=== PATIENT | male | born 1940 | race Caucasian/White ===

== ENCOUNTER → 2018-08-07 09:04 | Outpatient (CLI) | payer OTHER, MEDICARE, SELFPAY ==
--- NOTE | 2018-08-10 15:56 | PM.PFT.1 ---
Pulmonary Function Test Referral & Results Date Patient Seen: 08/07/18 Requesting provider: Cathie Lyman Indication: Cough Results: The spirometry demonstrates an FVC of 3.40 L which is 89% of predicted. The FEV1 was measured at 2.76 L which is 100% of predicted. The FEV1/FVC ratio was 81 which is 112% of predicted. Following the administration of bronchodilator there was a 34% improvement in FEF 25-75%. Lung volumes show an SVC of 3.78 L which is 90% of predicted. The diffusing capacity was measured at 17.58 which is 59% of predicted. No hemoglobin value was provided, so no correction for potential anemia could be made, if appropriate. The maximum voluntary ventilation was normal Interpretation: This study demonstrates probably normal spirometry although there was a very minimal improvement in small airway flow based on a 34% improvement in the FEF 25-75%, after bronchodilator There is a moderate reduction in diffusing capacity suggesting element of disease at the capillary alveolar level Clinical correlation suggested
== END ==
PROVIDERS: Visit Provider Physician Assistant Medical
DX: J40 Bronchitis, not specified as acute or chronic (principal); R05 Cough
CPT/HCPCS: 87070; 87102; 87116; 87205; 89220; 94010; 94060; 94726; 94729

== ENCOUNTER → 2018-08-07 15:13 | Outpatient (REF) | payer MEDICARE, OTHER, SELFPAY | LOC: LAB 15:13 | PROVIDERS: Visit Provider Physician Assistant Medical | DX: J40 Bronchitis, not specified as acute or chronic (principal); R05 Cough | CPT/HCPCS: 87070; 87102; 87116; 87205 ==

== ENCOUNTER → 2018-09-13 09:42 | Outpatient (CLI) | payer OTHER, MEDICARE, SELFPAY ==
--- NOTE | 2018-09-13 | DI.RAD.S_ITS ---
PROCEDURE: XR CHEST 2V INDICATIONS: BRONCHITIS TECHNIQUE: 2 views of the chest were acquired. COMPARISON: None. FINDINGS: Surgical changes and devices: Sternotomy wires, probable prior CABG. Right shoulder arthroplasty.. Lungs and pleura: No pleural effusions or pneumothorax. Lungs are clear. Mediastinum: Mediastinal contours are normal. Heart size is normal. Bones and chest wall: No suspicious bony abnormalities. Soft tissues appear unremarkable. IMPRESSION: Reduced inspiratory volume, no sign of pneumonia. Prior CABG. Dictated by: Kenny Anderson M.D. on 09/13/2018 at 10:29 Approved by: Kenny Anderson M.D. on 09/13/2018 at 10:30
--- NOTE | 2018-09-13 | DI.RAD.S_ITS ---
PROCEDURE: XR LUMBAR SPINE 2-3V INDICATIONS: BACK PAIN TECHNIQUE: 3 views of the lumbar spine were acquired. COMPARISON: None. FINDINGS: Bones: 5 [id number] vertebrae are present. There is mild levoscoliosis involving the thoracolumbar junction centered at L1 level. Minimal retrolisthesis of L1 on L2 and L2 on L3 is seen. Mckeon-white retrolisthesis of L4 on L5 is also noted. Degenerative endplate changes and bilateral facet arthrosis throughout lumbar spine is seen. No vertebral body compression fractures. No suspicious bony lesions. Soft tissues: Overlying bowel gas pattern is normal. No suspicious soft tissue calcifications. IMPRESSION: Degenerative disc disease throughout lumbar spine with likely mckeon-white degenerative spondylolisthesis at L1-2, L2-3 and L4-5 levels. No acute compression fracture. Dictated by: Memo Peters M.D. on 09/13/2018 at 11:30 Approved by: Memo Peters M.D. on 09/13/2018 at 11:33
--- NOTE | 2018-09-13 | DI.RAD.S_ITS ---
PROCEDURE: XR KNEE RT 3V INDICATIONS: KNEE PAIN TECHNIQUE: 4 views of the knee were acquired. COMPARISON: [facility], , KNEE 1 OR 2VW (RT), 02/04/2015, 15:44. FINDINGS: Bones: Patient is status post right total knee arthroplasty and subsequent revision. Alignment of right knee is anatomic. No gross hardware loosening or failure. No acute fracture or dislocation. No significant patellar subluxation. No suspicious bony lesions. Soft tissues: No joint effusion. No suspicious soft tissue calcifications. IMPRESSION: Anatomic right knee alignment. No gross hardware complication. No fracture or dislocation. Dictated by: Memo Peters M.D. on 09/13/2018 11:24 Approved by: Memo Peters M.D. on 09/13/2018 at 11:30
== END ==
PROVIDERS: Visit Provider Family Medicine
DX: J20.9 Acute bronchitis, unspecified (principal); M54.5 Low back pain; M25.561 Pain in right knee; M51.36 Other intervertebral disc degeneration, lumbar region; M43.16 Spondylolisthesis, lumbar region; Z96.651 Presence of right artificial knee joint; Z95.1 Presence of aortocoronary bypass graft
CPT/HCPCS: 71046; 72100; 73562

== ENCOUNTER → 2018-09-25 09:35 | Outpatient (CLI) | payer OTHER, MEDICARE, SELFPAY ==
--- NOTE | 2018-09-25 | DI.RAD.S_ITS ---
PROCEDURE: FL BARIUM SWALLOW W SPEECH INDICATIONS: COUGH/DYSPNEA TECHNIQUE: Examination was conducted in conjunction with speech pathology per standard protocol. In the lateral projection, filming was performed of the patient swallowing. AP projection filming may also be performed with patient swallowing. COMPARISON: None. FINDINGS: Function: The oral preparatory phase appears normal, with proper containment. The subsequent oral propulsive phase, pharyngeal phase, and esophageal phase of swallowing also appear normal with all proffered substances. No definite laryngotracheal penetration or aspiration. No pathologic vallecular pooling. Morphology: No cricopharyngeal bar is identified. No cervical esophageal webs. No Zenker's diverticulum. No strictures. There is esophageal dysmotility and delayed clearance of liquid barium consistencies. IMPRESSION: No aspiration seen. Esophageal dysmotility and delayed clearance of liquid barium consistencies. Dictated by: Rasheed Bravo M.D. on 09/25/2018 at 13:08 Approved by: Rasheed Bravo M.D. on 09/25/2018 at 13:09
--- NOTE | 2018-09-25 | DI.CT.S_ITS ---
PROCEDURE: CT CHEST HIGH RESOLUTION INDICATIONS: COUGH/DYSPNEA TECHNIQUE: Noncontrast 1.0 and 5.0 mm thick contiguous axial sections from the pulmonary apex to the posterior costophrenic angles, with 7 mm thick coronal and sagittal MIP reformats. 1 mm thick dynamic expiratory images acquired through the upper, mid, and lower lungs. 1.0 mm thick axial sections acquired from the melissa to the posterior costophrenic angles in the prone end-inspiration position. For radiation dose reduction, the following was used: automated exposure control, adjustment of mA and/or kV according to patient size. COMPARISON: [facility], CR, XR CHEST 2V, 09/13/2018, 9:49. FINDINGS: Image quality: Excellent. Lungs: No acute consolidation. Scattered subsegmental atelectasis and/or scarring No evidence of honeycombing is seen. There is presumed postinflammatory granulomatous changes including calcified right lung seen in the right upper lobe on image 134 measuring 2-3 mm and in the left posterior costophrenic sulcus measuring 5 mm on image 268 series 2. No pleural effusion or pneumothorax. The tree in bud opacities or definite mosaic lung attenuation. Minimal diffuse lower lobe projects as bilaterally. There is also Central airway thickening. Pleura: No pleural effusions or pneumothorax. Mediastinum: Heart size is normal. There appears to be a right ventricular aneurysm. This is not well evaluated in the absence of IV contrast. Coronary artery disease. Scattered calcified mediastinal lymph nodes are present. No pericardial effusion. Thoracic aorta and central pulmonary arteries are normal in size. Esophagus is normal in caliber. Bones and chest wall: No suspicious bony lesions. No vertebral body compression fractures. Abdomen: Visualized upper abdominal solid organs and bowel loops appear normal. 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 Recommend dedicated cardiology consultation and management. Presumed postinflammatory scarring and scattered atelectasis. Additional calcified mediastinal lymph nodes and scattered calcified granulomas suggesting prior granulomatous disease. No definite areas of honeycombing seen. Central airway thickening suggestive of nonspecific bronchitis versus reactive airways disease. Coronary artery disease. Dictated by: Rasheed Bravo M.D. on 09/25/2018 at 13:09 Approved by: Rasheed Bravo M.D. on 09/25/2018 at 13:25
== END ==
PROVIDERS: Visit Provider Physician Assistant Medical
DX: R05 Cough (principal); R06.00 Dyspnea, unspecified; I25.3 Aneurysm of heart; I25.10 Atherosclerotic heart disease of native coronary artery without angina pectoris; K22.4 Dyskinesia of esophagus
CPT/HCPCS: 71250; 74230; 92611

== ENCOUNTER 2021-01-01 10:49 | Emergency (ER) | payer OTHER, MEDICARE, SELFPAY ==
[2021-01-01] VITALS (15 sets, daily range): BP systolic 134–164; BP diastolic 71–79; PULSE 69–84; RESP 15–16; TEMP 36.7; O2SAT 83–98; BMI 28.8
--- NOTE | 2021-01-01 11:31 | ED_ITS ---
HPI - Extremity Problem General Chief complaint: Extremity Problem,Nontraumatic Stated complaint: Possible infect left shoulder Sent over by Ortho Time Seen by Provider: 01/01/21 11:02 Source: patient Mode of arrival: Ambulatory Limitations: no limitations History of Present Illness HPI Narrative: Patient is a 80-year-old male who is sent over from the [facility] office for concern of potential septic joint. Patient states that for several weeks if not longer he has had pain in his left shoulder. He initially was seen by orthopedic spine it was determined that it was not his neck that was causing his symptoms. He was then seen by 1 of the sports medicine physicians to do a steroid injection of his shoulder and secondary to the discomfort that he was having the steroid was not injected a and labs were ordered. These were done at an outside facility as an outpatient. I did come back that the CRP was elevated but the ESR was normal. He either contacted his orthopedic office this morning was seen by them and was told to come to the emergency department for repeat labs as I was concerned about the discomfort that he was having and a septic joint. Patient states that he is not having any fevers. No neck pain. No rash over shoulder. No tingling in his hand. Related Data Allergies Allergy/AdvReac Type Severity Reaction Status Date / Time No Known Drug Allergies Allergy Verified 01/01/21 11:00 Review of Systems Constitutional Constitutional: Denies chills, Denies fatigue and Denies headache(s) ENT Ears, Nose, Mouth, and Throat: Denies headache(s) Cardiovascular Cardiovascular: Denies chest pain and Denies dyspnea Respiratory Respiratory: Denies cough and Denies dyspnea Gastrointestinal Gastrointestinal: Denies nausea and Denies vomiting Musculoskeletal Musculoskeletal: Denies tingling Comments: Left shoulder pain has Integumentary/Breasts Skin/Breast: Denies lesions and Denies rash Neurologic Neurologic: Denies headache(s) and Denies tingling Endocrine Endocrine: Denies fatigue Hematologic/Lymphatic On Anticoagulants: No Allergic/Immunologic Allergic/Immunologic: Denies urticaria Patient History Medical History Shoulder pain Social History Smoking Status: Unknown if ever smoked Smoking Status: Unknown if ever smoked alcohol intake frequency: holidays/special occasions only Substance Use Type: does not use Exam Initial Vital Signs Initial Vital Signs: Vital Signs Temperature 98.0 F 01/01/21 11:00 Pulse Rate 83 01/01/21 11:00 Respiratory Rate 15 01/01/21 11:00 Blood Pressure 164/77 H 01/01/21 11:00 Pulse Oximetry 97 01/01/21 11:00 Const General: cooperative, comfortable and well developed Limitations: mental status not altered HENMT Head: normal to inspection and normocephalic Cardio Pulses: radial pulses present on the left Skin Lesions: no lesions Rashes: no rashes Neuro General: patient alert, patient awake and patient oriented x3 Sensory Exam: no sensory deficits noted Extrem General: capillary refill normal Other: Discomfort with abduction and adduction and flexion extensive note of his left shoulder. Psych Appearance: well kempt Procedures Joint Aspiration Joint Asp./Inject. 1: Time Out Performed: Yes Side of body: left Joint Aspirated: shoulder Ultrasound Guidance: No Skin Prep: Povidone-Iodine1% Local Anesthetic: lidocaine 1% and with bicarb Amount of anesthesia used (mL): 6 Needle Size Used: 18G Total fluid obtained (mL): 0 Patient Tolerated Procedure: Well Complications: none Course Orders Ordered: ED Orders 01/01/21 11:02 EKG-12 Lead Stat 01/01/21 11:17 Basic Metabolic Panel Stat C-Reactive Protein Quant Stat Complete Blood Count AUTO DIFF Stat Erythrocyte Sedimentation Rate Stat Lactate (Lactic Acid) Stat Procalcitonin Stat 01/01/21 12:35 MR shoulder LT wo/w con Stat 01/01/21 13:10 Blood Culture Stat 01/01/21 15:26 Consult to Orthopedic Surgery Stat 01/01/21 17:00 Body Fluid Culture Stat Discontinued Medications Sodium Chloride (Normal Saline 0.9%) 1,000 mls @ 500 mls/hr IV BOLUS ONE Stop: 01/01/21 14:38 Last Infusion: 01/01/21 17:00 Dose: 0 mls/hr Documented by: Admin: 01/01/21 13:01 Dose: 500 mls/hr Documented by: RONI Lidocaine/Sodium Bicarbonate (Lido 1%/Sod Bicarb 8.4% (10ml) 10 Ml Syringe) 10 ml INJ NOW ONE Stop: 01/01/21 11:16 Last Admin: 01/01/21 11:52 Dose: 10 ml Documented by: FHHUNTER Vital Signs Vital signs: Vital Signs - 8 hr 01/01/21 11:00 01/01/21 12:41 01/01/21 13:02 Temperature 98.0 F Pulse Rate 83 75 76 Respiratory Rate 15 Blood Pressure 164/77 H 134/79 Pulse Oximetry 97 95 01/01/21 13:30 01/01/21 14:30 01/01/21 15:00 Temperature Pulse Rate 69 75 72 Respiratory Rate Blood Pressure Pulse Oximetry 98 95 94 01/01/21 15:30 01/01/21 15:53 01/01/21 17:05 Temperature Pulse Rate 80 70 77 Respiratory Rate Blood Pressure 141/71 H 141/71 H Pulse Oximetry 83 L 89 L 83 L 01/01/21 17:06 01/01/21 17:30 01/01/21 18:00 Temperature Pulse Rate 78 77 80 Respiratory Rate Blood Pressure 146/71 H Pulse Oximetry 95 97 95 01/01/21 18:28 01/01/21 18:29 01/01/21 18:36 Temperature 98.0 F Pulse Rate 83 84 Respiratory Rate 16 Blood Pressure 153/79 H 153/79 H Pulse Oximetry 94 96 MDM - Extremity (Nontraumatic) Lab Data Result diagrams: 01/01/21 11:17 01/01/21 11:17 Labs: Lab Results 01/01/21 01/01/21 01/01/21 Range/Units 11:17 11:17 11:17 WBC 8.0 (4.5-11.0) X10^3/uL RBC 4.25 L (4.5-5.9) X10^6/uL Hgb 12.9 L (13.5-17.5) g/dL Hct 37.8 L (41-53) % MCV 88.8 (80-100) fL MCH 30.4 (26-34) PG MCHC 34.2 (30-36) % RDW 13.0 (11.6-14.8) % Plt Count 264 (150-400) X10^3/uL Neut % (Auto) 70.8 (50-75) % Lymph % (Auto) 13.8 L (25-40) % Willacy % (Auto) 10.4 (3-14) % Eos % (Auto) 4.0 (2-4) % Baso % (Auto) 1.0 (0-2) % Neut # (Auto) 5700 (3500-5494) /uL Lymph # (Auto) 1100 (6973-9558) /uL Willacy # (Auto) 800 (0-900) /uL Eos # (Auto) 300 (0-450) /uL Baso # (Auto) 100 (0-100) /uL ESR 71 H (0-15) MM/HR Sodium 135 L (137-145) mmol/L Potassium 4.2 (3.4-5.1) mmol/L Chloride 104 (98-107) mmol/L Carbon Dioxide 22 (22-32) mmol/L BUN 52 H (9-20) mg/dL Creatinine 2.99 H (0.66-1.25) mg/dL Estimated GFR 20.4 L (>60) mL/min BUN/Creatinine Ratio 17.4 (6-22) Glucose 95 (80-110) mg/dL Lactate (0.7-2.1) mmol/L Calcium 9.9 (8.4-10.2) mg/dL C-Reactive Protein 14.2 H (<1.0) mg/dL Procalcitonin 0.24 (<0.5) ng/mL 01/01/21 01/01/21 Range/Units 11:17 11:17 WBC (4.5-11.0) X10^3/uL RBC (4.5-5.9) X10^6/uL Hgb (13.5-17.5) g/dL Hct (41-53) % MCV (80-100) fL MCH (26-34) PG MCHC (30-36) % RDW (11.6-14.8) % Plt Count (150-400) X10^3/uL Neut % (Auto) (50-75) % Lymph % (Auto) (25-40) % Willacy % (Auto) (3-14) % Eos % (Auto) (2-4) % Baso % (Auto) (0-2) % Neut # (Auto) (1211-2641) /uL Lymph # (Auto) (8044-2484) /uL Willacy # (Auto) (0-900) /uL Eos # (Auto) (0-450) /uL Baso # (Auto) (0-100) /uL ESR (0-15) MM/HR Sodium (137-145) mmol/L Potassium (3.4-5.1) mmol/L Chloride (98-107) mmol/L Carbon Dioxide (22-32) mmol/L BUN (9-20) mg/dL Creatinine (0.66-1.25) mg/dL Estimated GFR (>60) mL/min BUN/Creatinine Ratio (6-22) Glucose (80-110) mg/dL Lactate 0.8 (0.7-2.1) mmol/L Calcium (8.4-10.2) mg/dL C-Reactive Protein (<1.0) mg/dL Procalcitonin Cancelled (<0.5) ng/mL Imaging Data Shoulder MRI: Radiologist's Impression: [address] [id number] Resonance ReportSigned Patient: Herb Teresa TMR#: [id number]: 1940cct:[id number]/Sex: 80 / MDate of Service: 01/01/21Loc: EDAccession Number: [id number] Procedure: MR shoulder LT wo/w con Ordering Provider: Praveen Bateman D.O. PROCEDURE: MR SHOULDER LT WO/W CON INDICATIONS: eval for septic joint recommended by Ortho TECHNIQUE: Noncontrast oblique coronal T1 spin echo and T2 fast spin echo with fat saturation, oblique sagittal T1 spin echo and T2 fast spin echo with fat saturation, axial T1 spin echo and T2 fast spin echo with fat saturation through the shoulder. Post- contrast oblique coronal, oblique sagittal, and axial T1 spin echo with fat saturation through the shoulder. COMPARISON: None. FINDINGS: Exam degraded by uncontrollable motion artifact. Rotator cuff: Full-thickness tear of the supraspinatus and infraspinatus tendon is present. This measures approximately 3.4 cm in the AP dimension as seen on sagittal pulse sequences although limited evaluation given uncontrollable motion artifact. There is also teres minor tendinopathy and thickening. Subscapularis tendinopathy and partial-thickness articular sided tear. This is not well seen due to motion artifact. There is atrophy of the supraspinatus and infraspinatus muscles. There is also probable atrophy of the subscapularis muscle not well seen. Bones and bursae: No bone marrow contusions or fractures. Severe hypertrophic acromioclavicular joint degeneration. There is glenohumeral degenerative joint disease. Large joint effusion . No suspicious enhancement. There is nonspecific synovial enhancement. No enhancing mass lesion identified.Acromion demonstrates conventional anatomy, without an os acromiale. Capsule and soft tissues: Labrum: There is amorphous blunting of the anterior and posterior labrum. The superior labrum is not well seen however this could be due to motion artifact. Long head of the biceps tendon grossly intact although attenuated and likely reflective of longstanding tendinopathy. The rotator interval appears normal, without fibrosis. Coracohumeral ligament intact. IMPRESSION: No marrow signal changes or enhancement to suggest osteomyelitis. Large joint effusion. Infection/septic joint cannot be excluded on the basis of imaging findings. Large full-thickness tear of the supraspinatus and infraspinatus tendons. Subscapularis tendinopathy and partial-thickness articular sided tear. Teres minor tendinopathy. Diffuse atrophy of the rotator cuff muscles as above. Circumferential amorphous blunted appearance of the anterior and posterior labrum, likely reflecting chronic degenerative tear/fraying. The superior labrum is not well seen. Motion degraded examination Dictated by: Rasheed Bravo M.D. on 01/01/2021 at 14:49 Approved by: Rasheed Bravo M.D. on 01/01/2021 at 15:00 ECG Data Attestation EKG: I personally reviewed and interpreted this ECG as follows: Prior ECG tracings: not available for review Interpretation: Sinus rhythm First degree AV block with AL interval 220 milliseconds Ventricular rate is 72 Normal axis Normal QRS Normal QTC No ST T wave changes MDM Narrative Medical decision making narrative: Patient's labs today do does show improvement of the CRP however his ESR is elevated. He has no elevation in his white blood cell count. His procalcitonin lactate are unremarkable. Was unable to obtain any fluid from his left shoulder. Discussed the case with Dr. cherry who recommended obtaining an MRI of the shoulder to see if there was a fluid collection there. This was obtained that does show a fluid collection. I then discussed the case with Dr. Travis who was on-call for orthopedics who came to the emergency department evaluated the patient and performed a arthrocentesis. She was able to obtain fluid. This was sent for cell count however this was unable to be completed because of clotting. The culture was obtained. G stain shows no organisms. Dr. Travis states she felt this is less likely a septic joint although she did admit that she was unsure as to why the ESR and CRP are elevated. Given that there was no organisms on the Gram stain clinic was to hold on any antibiotics and discharged home. He is going to contact the orthopedic department the beginning of next week as a follow-up. He is given return precautions and follow-up instructions. He expressed understanding and agreement. Discharge Plan Departure Patient Disposition: Home Clinical Impression: Acute pain of left shoulder Activity Restrictions/Additional Instructions: Your workup here in the emergency department points against an infection in your left shoulder. I recommend that you continue all of your medications as directed. Also recommend that you contact the [facility] group on Monday at [phone]. [address] Cherry or Dr. Travis (who saw you in the emergency department today) will follow up with you next week. Return to the emergency department for any new or worsening symptoms
[2021-01-01 11:37] LABS: Add Manual Diff / Slide Review NO; Basophils Absolute Auto 100 /uL (0-100); Eosinophils Absolute Auto 300 /uL (0-450); Hematocrit 37.8 % (41-53); Hemoglobin 12.9 g/dL (13.5-17.5); Lymphocytes Absolute Auto 1100 /uL (1100-4500); Lymphocytes Percent Auto 13.8 % (25-40); Mean Corpuscular HGB Conc 34.2 % (30-36); Mean Corpuscular Hemoglobin 30.4 PG (26-34); Mean Corpuscular Volume 88.8 fL (80-100); Monocytes Absolute Auto 800 /uL (0-900); Monocytes Percent Auto 10.4 % (3-14); Neutrophils Absolute Auto 5700 /uL (1500-7000); Neutrophils Percent Auto 70.8 % (50-75); Platelet Count 264 X10^3/uL (150-400); Red Blood Cell Count 4.25 X10^6/uL (4.5-5.9)
[2021-01-01 11:45] LABS: Lactate (Lactic Acid) 0.8 mmol/L (0.7-2.1)
[2021-01-01 11:47] LABS: BUN Creatinine Ratio 17.4 (6-22); Blood Urea Nitrogen 52 mg/dL (9-20); Calcium 9.9 mg/dL (8.4-10.2); Carbon Dioxide 22 mmol/L (22-32); Chloride 104 mmol/L (98-107); Estimated Glomerular Filt Rate 20.4 mL/min (>60); Glucose 95 mg/dL (80-110); HEMOLYSIS < 15 (0-50); Potassium 4.2 mmol/L (3.4-5.1); Sodium 135 mmol/L (137-145)
[2021-01-01] MEDS: LIDO 1%/SOD BICARB 8.4% (10ML) 10 ML SYRINGE INJ (11:52)
[2021-01-01 11:59] LABS: C-Reactive Protein Quant 14.2 mg/dL (<1.0); Erythrocyte Sedimentation Rate 71 MM/HR (0-15)
[2021-01-01 12:01] LABS: Procalcitonin 0.24 ng/mL (<0.5)
--- NOTE | 2021-01-01 12:35 | DI.MRI.S_ITS ---
PROCEDURE: MR SHOULDER LT WO/W CON INDICATIONS: eval for septic joint recommended by Ortho TECHNIQUE: Noncontrast oblique coronal T1 spin echo and T2 fast spin echo with fat saturation, oblique sagittal T1 spin echo and T2 fast spin echo with fat saturation, axial T1 spin echo and T2 fast spin echo with fat saturation through the shoulder. Post-contrast oblique coronal, oblique sagittal, and axial T1 spin echo with fat saturation through the shoulder. COMPARISON: None. FINDINGS: Exam degraded by uncontrollable motion artifact. Rotator cuff: Full-thickness tear of the supraspinatus and infraspinatus tendon is present. This measures approximately 3.4 cm in the AP dimension as seen on sagittal pulse sequences although limited evaluation given uncontrollable motion artifact. There is also teres minor tendinopathy and thickening. Subscapularis tendinopathy and partial-thickness articular sided tear. This is not well seen due to motion artifact. There is atrophy of the supraspinatus and infraspinatus muscles. There is also probable atrophy of the subscapularis muscle not well seen. Bones and bursae: No bone marrow contusions or fractures. Severe hypertrophic acromioclavicular joint degeneration. There is glenohumeral degenerative joint disease. Large joint effusion . No suspicious enhancement. There is nonspecific synovial enhancement. No enhancing mass lesion identified.Acromion demonstrates conventional anatomy, without an os acromiale. Capsule and soft tissues: Labrum: There is amorphous blunting of the anterior and posterior labrum. The superior labrum is not well seen however this could be due to motion artifact. Long head of the biceps tendon grossly intact although attenuated and likely reflective of longstanding tendinopathy. The rotator interval appears normal, without fibrosis. Coracohumeral ligament intact. IMPRESSION: No marrow signal changes or enhancement to suggest osteomyelitis. Large joint effusion. Infection/septic joint cannot be excluded on the basis of imaging findings. Large full-thickness tear of the supraspinatus and infraspinatus tendons. Subscapularis tendinopathy and partial-thickness articular sided tear. Teres minor tendinopathy. Diffuse atrophy of the rotator cuff muscles as above. Circumferential amorphous blunted appearance of the anterior and posterior labrum, likely reflecting chronic degenerative tear/fraying. The superior labrum is not well seen. Motion degraded examination Dictated by: Rasheed Bravo M.D. on 01/01/2021 at 14:49 Approved by: Rasheed Bravo M.D. on 01/01/2021 at 15:00
[2021-01-01] MEDS: SODIUM CHLORIDE 0.9% 1,000 ML 500 ML IV (13:01)
--- NOTE | 2021-01-02 14:07 | PM.HP.1 ---
History of Present Illness History of Present Illness Date Patient Seen: 01/01/21 Time Patient Seen: 17:29 Chief complaint: Possible infect left shoulder Sent over by Ortho Narrative: This is a 80-year-old gentleman who notes that in October he started developing some ongoing left shoulder pain. He notes fairly constant pain into the left shoulder. He saw Dr. russo the earlier this week I believe on the and he had incapacitating left shoulder pain. He was concerned that his pain was out of proportion to what would be anticipated and so he worked him up to rule out infection. His white count was noted to be 10.8 his sed rate was noted to be 15 but his C reactive protein was exceptionally elevated at 164 on labs done through [facility] on 12/29/2020. He returned to see Dr. Jose Maria Vanegas on 01/01/2021 where he was concerned that he potentially had a infected left shoulder and he referred him to the emergency room for additional evaluation. An MRI scan was done in the emergency room that showed evidence of rotator cuff tear and a mild to moderate left shoulder joint effusion. Dr. Bateman attempted to aspirate the shoulder from a posterior approach but got a dry tap. I was consulted for additional orthopedic evaluation and possible aspiration. Patient History Medical History Shoulder pain Family & Social History Safety & Behavioral: Feels Safe in Current Yes Environment Been Physically Hurt or No Threatened By a Person Tobacco & Substance use: Smoking Status Unknown if ever smoked alcohol intake frequency holiday/special occasion Substance Use Type does not use Meds Home Medications and Allergies Allergies Allergy/AdvReac Type Severity Reaction Status Date / Time No Known Drug Allergies Allergy Verified 01/01/21 11:00 Review of Systems Review of Systems Narrative: Specifically denies recent fever or chills, notes he has chronic problems with his right knee 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 It was revised basically within 1 year after his initial knee replacement. He has not had malaise or recent fever or chills. Exam Vital Signs (past 8 hours): Oxygen Delivery Method Room Air Narrative Exam Narrative: He is resting comfortably in bed he is alert and oriented is neck is supple lungs are clear cor is regular rate and rhythm, examination of his left shoulder internal rotation is 60 external rotation is about 20 there is moderate guarding he is tender to palpation over the anterior shoulder and some posteriorly, there is no erythema, there is some pain but not a incapacitating with gentle range of motion. Objective Labs Result Diagrams: 01/01/21 11:17 01/01/21 11:17 Assessment & Plan Assessment & Plan narrative: Significant left shoulder pain. His MRI scan shows evidence of a rotator cuff tear and shows fluid in both the shoulder as well as some anterior to the shoulder. His MRI scan does not show osteomyelitis as there is no bony edema. His sedimentation rate is now 71 which is concerning. His C reactive protein is 14.2 which is also elevated. His creatinine is 2.99. He has not had fevers or chills and clinically he does not appear to have a septic shoulder. I recommended aspiration of his left shoulder. S left shoulder was prepped with ChloraPrep and I aspirated his left shoulder from an anterior approach and got about 3 cc of joint fluid with no evidence of pus. It was slightly cloudy. It was sent for culture and sensitivity, Gram stain, and cell count if it was not clotted. He also had blood cultures drawn. The Gram stain did not show evidence of bacteria and the patient was discharged to home. A subsequently contacted the patient reassuring him that his cultures were no growth at 24 hours post aspiration and specifically asked him to see his primary care practitioner about concerns related to his elevated creatinine. Quality MIPS - Admit Advanced Care Plan / Current Medications Measures: #47 ? Advanced Care Plan Clinician documentation instruction: document at admission. [] I confirmed that the patient's Advance Care Plan is present, code status is documented, or surrogate decision maker is listed in the patient?s medical record. [SATISFIES [facility] PERFORMANCE] If Yes, Stop Here [] The patient?s Advance Care plan is not present because: (select) [MIPS PERFORMANCE EXCEPTION/EXCLUSION] [] I confirmed today that the patient does not wish or was not able to name a surrogate decision maker or provide an Advance Care Plan. [] Hospice care is currently being provided or has been provided this calendar year [] I did NOT confirm today the presence of an Advance Care Plan or surrogate decision maker documented within the patient's medical record. [DOES NOT SATISFY [facility]IPS PERFORMANCE] #130 - Documentation of Current Medications in the Medical Record Clinician documentation instruction: use macro the first time you see a patient. [] I have utilized all available immediate resources to obtain, update, or review the patient?s current medications. [SATISFIES [facility] PERFORMANCE] If Yes, Stop Here [] The patient is not eligible for medication reconciliation; the patient is in an emergent medical situation where delaying treatment would jeopardize the patient?s health. [MIPS PERFORMANCE EXCEPTION/EXCLUSION] [] I did NOT confirm, update or review the patient's current list of medications today. [DOES NOT SATISFY [facility]IPS PERFORMANCE] MIPS - CL Central Venous Catheter Placement Measure: #76 ? Prevention of Central Venous Catheter (CVC) ? Related Bloodstream Infection Clinician documentation instruction: use macro every time you place a central line. [] All elements of Maximal Sterile Barrier Technique, including hand hygiene, skin prep, and sterile ultrasound technique (if used) were followed. [SATISFIES [facility] PERFORMANCE] If Yes, Stop Here [] If ?No?, the medical reason all elements were NOT used for medical reason [] (ex. emergent condition). [] Maximal Sterile Barrier Technique was not followed, no reason provided [DOES NOT SATISFY [facility] PERFORMANCE] MIPS - DC Heart Failure Measures: #5 - Heart Failure (HF): Angiotensin-Converting Enzyme (ADELIA) Inhibitor or Angiotensin Receptor Gabrielle (ARB) Therapy for Left Ventricular Systolic Dysfunction (LVSD) and #8 - Heart Failure (HF): Beta-Gabrielle Therapy for Left Ventricular Systolic Dysfunction (LVSD) Clinician documentation instruction: use macro at every CHF discharge. [] The patient has current or prior documentation of left ventricular ejection fraction (LVEF) less than 40%, or moderate or severely depressed left ventricular systolic function. Answer both: [SATISFIES [facility] PERFORMANCE] [] The patient was prescribed or already taking an Angiotensin-Converting Enzyme (ADELIA) Inhibitor, or Angiotensin Receptor Gabrielle (ARB). [] The patient was prescribed or already taking a beta-gabrielle. If Yes to Both, Stop Here [] Patient not prescribed/taking: [MIPS PERFORMANCE EXCEPTION/EXCLUSION] [] ADELIA or ARB for medical/patient/system reason(s) including [] (ex. allergy, intolerance, contraindication) [] Beta-gabrielle for medical/patient/system reason(s) including [] (ex. allergy, intolerance, contraindication) [] Patient not prescribed/taking: [DOES NOT SATISFY [facility] PERFORMANCE] [] ADELIA or ARB, no reason given [] Beta-gabrielle, no reason given
== END 2021-01-01 18:38 | disposition home or self-care (01) ==
PROVIDERS: Emergency Provider Emergency Medicine; Referring Provider Emergency Medicine
DX: M25.512 Pain in left shoulder (principal); I10 Essential (primary) hypertension; I44.0 Atrioventricular block, first degree; R79.9 Abnormal finding of blood chemistry, unspecified
CPT/HCPCS: 20610; 36415; 73223; 80048; 83605; 84145; 85025; 85651; 86140; 87040; 87070; 87075; 87205; 93005; 93010; 96360; 96361; 99284; Q9967